=== PATIENT | female | born 1965 | race Caucasian/White ===

== ENCOUNTER 2016-12-25 19:42 | Emergency (ER) | payer MEDICARE ==
[~2016-12-25] VITALS: Ht 162.6 cm; Wt 72.0 kg
[2016-12-25] MEDS ORDERED: CLONIDINE 0.2MG TABLET PO ONE (20:00)
[2016-12-25] MEDS ORDERED: LORAZEPAM 2MG/ML CPJ IV ONE (20:00)
[2016-12-25] MEDS ORDERED: MORPHINE SULFATE 4 MG/ML CPJ (NOT FOR IM USE) IV STA (20:00)
[2016-12-25] MEDS ORDERED: ONDANSETRON HCL 4MG/2ML VIAL IV STA (20:00)
[2016-12-25 20:23] LABS: BASOPHILS % 1.3 % (0.0-2.0); HEMATOCRIT. 37.7 % (36.0-48.0); HEMOGLOBIN. 13.3 g/dL (12.0-16.0); LYMPHOCYTES % 25.5 % (20.0-50.0); MEAN CORPUSCULAR HEMOGLOBIN 32.1 pg (28.0-32.0); MEAN CORPUSCULAR HGB CONC 35.2 g/dL (31.0-37.0); MEAN CORPUSCULAR VOLUME 91.1 fL (81.0-99.0); MEAN PLATELET VOLUME 7.2 fl (7.4-10.4); MONOCYTES % 8.3 % (2.0-8.0); NEUTROPHILS % 63.9 % (40.0-76.0); PLATELET 202 x1000/uL (130-400); RED BLOOD CELL COUNT 4.14 mill/uL (4.2-5.4); RED CELL DISTRIBUTION WIDTH 13.5 % (11.6-14.6); WHITE BLOOD COUNT 5.1 x1000/uL (4.5-11.0)
[2016-12-25 20:26] LABS: PROTHROMBIN TIME 10.9 sec
[2016-12-25 20:32] LABS: AMMONIA 13 uMol/L (<32)
[2016-12-25 20:36] LABS: ACETAMINOPHEN < 2 ug/mL (10-30); ALANINE AMINOTRANSFERASE 17 IU/L (13-61); ALBUMIN 3.6 g/dL (3.4-5.0); ANION GAP 14; CALCIUM 8.6 mg/dL (8.5-10.1); CARBON DIOXIDE 29 mEq/L (21-32); CHLORIDE 89 mEq/L (98-107); CREATINE KINASE 78 IU/L (26-192); ETHANOL BLOOD < 10 mg/dL; INDEX HEMOLYSI 1 (1-3); INDEX ICTERIC 1 (1-4); INDEX LIPEMIC 1 (1-3); NT PRO B-TYPE NATRIURETIC PEP 398 pg/mL (5-125); TROPONIN I < 0.02 ng/mL (0.00-0.04); UREA NITROGEN BLOOD 9 mg/dL (7-21); eGFR > 60 mL/min (>60)
[2016-12-25] MEDS ORDERED: AMLODIPINE 5MG TABLET PO ONE (22:30)
[2016-12-25 22:32] LABS: CLARITY URINE CLEAR (CLEAR); COLOR URINE YELLOW (YELLOW); GLUCOSE URINE NEGATIVE (NEGATIVE); KETONES URINE 1+ (NEGATIVE); LEUKOCYTE ESTERASE URINE 3+ (NEGATIVE); NITRITE URINE NEGATIVE (NEGATIVE); OCCULT BLOOD URINE NEGATIVE (NEGATIVE); PH URINE 6.5 (4.5-8.0); PROTEIN URINE NEGATIVE (NEGATIVE); SPECIFIC GRAVITY URINE 1.011 (1.005-1.030); UROBILINOGEN URINE 0.2 E.U./dL (0.2-1.0)
[2016-12-25 22:43] LABS: *AMPHETAMINES SCREEN URINE PRESUMTIVE POSITIVE (NEGATIVE); *BARBITURATES SCREEN URINE NEGATIVE (NEGATIVE); *BENZODIAZEPINES SCREEN URINE NEGATIVE (NEGATIVE); *COCAINE SCREEN URINE NEGATIVE (NEGATIVE); CANNABINOID URINE SCREEN NEGATIVE (NEGATIVE); ECSTASY MDMA SCREEN URINE NEGATIVE (NEGATIVE); METHADONE URINE SCREEN NEGATIVE (NEGATIVE); OPIATES URINE SCREEN PRESUMTIVE POSITIVE (NEGATIVE); PHENCYCLIDINE URINE SCREEN NEGATIVE (NEGATIVE)
[2016-12-25 23:05] LABS: BACTERIA URINE 1+; RBC URINE 0-2 /hpf (0-2); SQUAMOUS EPITHELIAL CELL URINE FEW /lpf (RARE/1+)
[2016-12-26] VITALS: BP 117/68
== END 2016-12-26 00:20 | disposition home or self-care (01) ==
LOC: ER 20:09
DX: I10 Essential (primary) hypertension (principal); R11.0 Nausea; R51 Headache; F15.10 Other stimulant abuse, uncomplicated; F31.9 Bipolar disorder, unspecified; Z88.2 Allergy status to sulfonamides
CPT/HCPCS: 36415; 70450; 71010; 80053; 80305; 80329; 81001; 82140; 82550; 83880; 84443; 84484; 85025; 85610; 85651; 93005; 96374; 96375; 99285; G0482; J2060; J2270; J2405; 80307

== ENCOUNTER 2017-03-03 17:14 | Emergency (ER) | payer MEDICARE ==
[~2017-03-03] VITALS: Ht 167.6 cm; Wt 73.0 kg
[2017-03-03] MEDS ORDERED: SILVER SULFADIAZINE 1% CREAM 25GM TOP ONE (21:15)
[2017-03-03] MEDS ORDERED: ACETAMINOPHEN 500MG TABLET PO ONE ×2 (21:15→23:15)
[2017-03-03 21:51] LABS: BASOPHILS % 0.7 % (0.0-2.0); EOSINOPHILS % 7.2 % (0.0-5.0); HEMATOCRIT. 34.8 % (36.0-48.0); LYMPHOCYTES % 35.7 % (20.0-50.0); MEAN CORPUSCULAR HEMOGLOBIN 32.8 pg (28.0-32.0); MEAN CORPUSCULAR HGB CONC 34.7 g/dL (31.0-37.0); MEAN CORPUSCULAR VOLUME 94.7 fL (81.0-99.0); MEAN PLATELET VOLUME 7.7 fl (7.4-10.4); MONOCYTES % 8.9 % (2.0-8.0); NEUTROPHILS % 47.5 % (40.0-76.0); PLATELET 232 x1000/uL (130-400); RED BLOOD CELL COUNT 3.67 mill/uL (4.2-5.4); RED CELL DISTRIBUTION WIDTH 13.9 % (11.6-14.6); WHITE BLOOD COUNT 5.3 x1000/uL (4.5-11.0)
[2017-03-03 21:56] LABS: CHLORIDE 107 mEq/L (98-107); INDEX HEMOLYSI 1 (1-3); INDEX ICTERIC 1 (1-4); INDEX LIPEMIC 1 (1-3)
[2017-03-03 22:08] LABS: ALANINE AMINOTRANSFERASE 37 IU/L (13-61); ALBUMIN 3.2 g/dL (3.4-5.0); ANION GAP 10; CALCIUM 7.8 mg/dL (8.5-10.1); CARBON DIOXIDE 30 mEq/L (21-32); NT PRO B-TYPE NATRIURETIC PEP 278 pg/mL (5-125); UREA NITROGEN BLOOD 12 mg/dL (7-21); eGFR > 60 mL/min (>60)
[2017-03-04] MEDS ORDERED: METRONIDAZOLE 500 MG PREMIX 100 ML IV ONE (00:15)
[2017-03-04 00:35] VITALS: BP 127/69
== END 2017-03-04 01:05 | disposition home or self-care (01) ==
LOC: ER 20:46
DX: R60.0 Localized edema (principal); I10 Essential (primary) hypertension; H54.7 Unspecified visual loss; Z88.2 Allergy status to sulfonamides
CPT/HCPCS: 36415; 71010; 80053; 83880; 85025; 99285; J3490